=== PATIENT | female | born 1955 | race Caucasian/White ===

== ENCOUNTER → 2017-01-19 | Outpatient (CLI) | payer BC ==
--- NOTE | 2017-01-19 23:23 | REP ---
RIGHT FIRST DIGIT: Four views of the right first digit are performed. There is no acute fracture or dislocation. There is moderate narrowing at the first metacarpal phalangeal joint. There is severe narrowing with subchondral sclerosis and spurring at the first interphalangeal joint. IMPRESSION: Degenerative changes without fracture or dislocation. Signed by Yaw Hong MD 01/20/2017 05:00 P
== END ==
LOC: M LRY 19:09
PROVIDERS: ATTEND Physician Assistant
DX: M79.644 Pain in right finger(s) (principal)

== ENCOUNTER → 2018-10-03 | Outpatient (CLI) | payer BC, OTHER ==
--- NOTE | 2018-10-03 15:16 | REP ---
Clinical: Pain. Technique: AP, lateral, bilateral oblique views of the right hand. Findings: Moderate to advanced osteoarthritic degenerative changes are appreciated primarily involving the interphalangeal joints as well as the metacarpophalangeal joints. Findings include subchondral sclerosis with joint space narrowing and marginal spurring. Findings are most pronounced at the first interphalangeal joint. No acute fracture or dislocation. Impression: Moderate to advanced osteoarthritic degenerative changes. Electronically Signed by Shadi Newby MD 10/03/2018 03:06 P
== END ==
LOC: M LRY 14:25
PROVIDERS: ATTEND Nurse Practitioner Family
DX: M19.041 Primary osteoarthritis, right hand (principal)

== ENCOUNTER → 2018-10-07 | Outpatient (REF) | payer OTHER | LOC: M SFHCLERA 18:22 | PROVIDERS: ATTEND Physician Assistant | DX: J02.9 Acute pharyngitis, unspecified (principal) ==

== ENCOUNTER → 2019-04-11 | Outpatient (REF) | payer OTHER ==
[2019-04-15 14:42] LABS: HPV HYBRID CAPTURE II Negative (Negative)
== END ==
LOC: M LAB LCGH 11:50
PROVIDERS: ATTEND Obstetrics & Gynecology
DX: Z12.4 Encounter for screening for malignant neoplasm of cervix (principal)

== ENCOUNTER → 2019-04-11 | Outpatient (REF) | LOC: M LAB LCGH 10:05 | PROVIDERS: ATTEND Obstetrics & Gynecology | DX: Z00.00 Encounter for general adult medical examination without abnormal findings (principal) ==